=== PATIENT | female | born 1935 | race Caucasian/White ===

== ENCOUNTER 2018-04-07 15:26 | Outpatient (CLI) | payer OTHER ==
[2018-04-07 16:20] LABS: BASOPHILS % (AUTO) 0.7 %; EOSINOPHILS # (AUTO) 0.1 10^3/uL (0.0-0.7); EOSINOPHILS % (AUTO) 2.3 %; HGB - HEMOGLOBIN 12.7 g/dL (12.0-16.0); LYMPHOCYTES # (AUTO) 1.3 10^3/uL (1.5-3.5); LYMPHOCYTES % (AUTO) 24.2 %; MEAN CORPUSCULAR HEMOGLOBIN 28.7 pg (27.0-31.0); MEAN CORPUSCULAR HGB CONC 33.5 g/dL (32.0-36.0); MEAN CORPUSCULAR VOLUME 85.6 fL (81.0-99.0); MEAN PLATELET VOLUME 7.8 fL (7.9-10.8); MONOCYTES # (AUTO) 0.4 10^3/uL (0.0-1.0); NEUTROPHILS # (AUTO) 3.5 10^3/uL (1.5-6.6); NEUTROPHILS % (AUTO) 64.8 %; PLT - PLATELET COUNT 221 10^3/uL (130-450); RED BLOOD COUNT 4.41 10^6/uL (4.20-5.40); RED CELL DISTRIBUTION WIDTH 16.4 % (12.0-15.0); WHITE BLOOD COUNT 5.4 x10^3/uL (4.8-10.8)
[2018-04-07 16:32] LABS: ALBUMIN 4.2 g/dL (3.2-5.5); ALBUMIN/GLOBULIN RATIO 1.8 (1.0-2.2); BILIRUBIN,TOTAL 0.2 mg/dL (0.2-1.0); CALCIUM 9.2 mg/dL (8.5-10.3); CREATININE 0.8 mg/dL (0.4-1.0); TOTAL PROTEIN 6.6 g/dL (6.7-8.2)
== END 2018-04-07 15:27 | disposition home or self-care (01) ==
LOC: LAB 15:26
PROVIDERS: ATTEND Registered Nurse
DX: R53.83 Other fatigue (principal)
CPT/HCPCS: 36415; 80053; 84443; 85025

== ENCOUNTER 2018-04-07 15:36 | Outpatient (CLI) | payer MEDICARE ==
--- NOTE | 2018-04-08 06:23 | CT Report ---
Reason: INCREASING IMBALANCE Procedure Date: 04/07/2018 Accession Number: [id number] / [id number] Procedure: CT - Head W/O CPT Code: FULL RESULT: EXAM: CT HEAD EXAM DATE: 04/07/2018 03:44 PM. CLINICAL HISTORY: Increasing imbalance. History of subdural hematoma. COMPARISON: None. TECHNIQUE: Multiaxial CT images were obtained from the foramen magnum to the vertex. Reformats: Sagittal and coronal. IV contrast: None. In accordance with CT protocol optimization, one or more of the following dose reduction techniques were utilized for this exam: automated exposure control, adjustment of mA and/or KV based on patient size, or use of iterative reconstructive technique. FINDINGS: Parenchyma: No intraparenchymal hemorrhage. No evidence of mass, midline shift or CT findings of acute infarction. Hill-white differentiation is distinct. 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 Extraaxial Spaces: Normal for age. No subdural or epidural collections identified. Ventricles: The ventricles and cortical sulci are enlarged, consistent with age-related tissue loss. Sinuses: Imaged paranasal sinuses, orbits, and mastoids show no significant abnormality. Bones: No evidence of fracture or calvarial defect. Other: None. IMPRESSION: Mild senescent changes without evidence of acute intracranial abnormality. [facility]
== END 2018-04-07 15:37 | disposition home or self-care (01) ==
LOC: DI 15:36
PROVIDERS: ATTEND Registered Nurse
DX: R26.89 Other abnormalities of gait and mobility (principal); M79.81 Nontraumatic hematoma of soft tissue; R53.83 Other fatigue
CPT/HCPCS: 36415; 70450; 80053; 84443; 85025

== ENCOUNTER 2019-02-13 16:57 | Emergency (ER) | payer MEDICARE ==
[2019-02-13] MEDS ORDERED: TETANUS/DIPHTHERIA/PERTUSSIS 0.5 ML SYRINGE IM ONE (17:30)
[2019-02-13] MEDS ORDERED: BACITRACIN OINT TOP STA (17:31)
--- NOTE | 2019-02-13 17:34 | ED Physician Documentation ---
PD HPI LOWER EXT INJURY - Stated complaint Stated Complaint: LT LEG LAC - Chief complaint Chief Complaint: Wound - History obtained from History obtained from: Patient - History of Present Illness PD HPI LOW EXT INJURY LOCATION: Left, Lower leg Type of injury: Other (skin avulsion) Where injury occurred: [place] Timing - onset: How many hours ago (1) Timing - duration: Hours (1) Timing - details: Abrupt onset Pain level max: 4 Pain level now: 3 Improved by: Rest Worsened by: Moving, Palpating Associated symptoms: No: Weakness, Numbness, Tingling, Swelling Contributing factors: No: Anticoagulated Recently seen: Not recently seen - Additional information Additional information: Patient was playing with her dog when her dog pawed at her and avulsed skin from the left lower leg. Review of Systems Constitutional: denies: Fever Skin: denies: Rash Musculoskeletal: denies: Neck pain, Back pain Neurologic: denies: Headache PD PAST MEDICAL HISTORY - Past Medical History Past Medical History: No - Present Medications Home Medications: Ambulatory Orders Medication Instructions Recorded Confirmed Bacitracin Zinc Oint 1 applic TOP BID #1 tube 02/13/19 - Allergies Allergies/Adverse Reactions: Allergies Allergy/AdvReac Type Severity Reaction Status Date / Time blood pressure medications Allergy Unknown Uncoded 02/13/19 17:11 - Living Situation Living Arrangement: reports: At home - Social History Does the pt have substance abuse?: No - Family History Family history: reports: Non contributory - Immunizations Immunizations are current?: No Immunizations: TDAP >10years/unknown PD ED PE NORMAL - Vitals Vital signs reviewed: Yes - General General: Alert and oriented X 3, No acute distress - HEENT HEENT: Moist mucous membranes - Derm Derm: Warm and dry - Extremities Extremities: Other (L LE - There is a large wound to the lateral aspect of the lower left leg. The skin is avulsed. Approximately 2 x 15 cm. Superficial. NVI.) - Neuro Neuro: Alert and oriented X 3 - Psych Psych: Normal mood, Normal affect Results - Vitals Vitals: Vital Signs - 24 hr 02/13/19 17:08 Temperature 37.2 C Heart Rate 91 Respiratory 20 Rate Blood Pressure 200/104 H O2 Saturation 99 Oxygen O2 Source Room air PD MEDICAL DECISION MAKING - ED course Complexity details: considered differential, d/w patient ED course: 83-year-old female with a left lower extremity skin avulsion. This was cleansed. Mepitel was placed over the area. Bacitracin applied and then a loose Kerlix bandage applied. We will have her change the outer dressings twice a day. Warnings of infection and instructions on wound care given at bedside. Also counseled on how to minimize scarring. patient counseled that she may need further wound care. Patient counseled regarding signs and symptoms for which I believe and urgent re-evaluation would be necessary. Patient with good understanding of and agreement to plan and is comfortable going home at this time This document was made in part using voice recognition software. While efforts are made to proofread this document, sound alike and grammatical errors may occur. Departure - Departure Disposition: 01 Home, Self Care Clinical Impression: Skin avulsion Condition: Good Instructions: ED Avulsion Dermal Follow-Up: Julisa Keith ARNP [Primary Care Provider] - Within 1 week Prescriptions: Bacitracin Zinc Oint 1 applic TOP BID #1 tube Comments: Return if you worsen. Follow-up with your doctor for further care. Return if you notice redness, swelling or drainage from the wound. You can change the outer dressing. Leave the Mepitel in place for 10 to 14 days. You may need to follow-up with wound care as well. This will require a referral from your doctor. You were also given a tetanus shot today.
[2019-02-13] MEDS ORDERED: BACITRACIN OINT TOP ONE (17:38)
[2019-02-13 18:08] VITALS: BP 157/95
== END 2019-02-13 18:04 | disposition home or self-care (01) ==
LOC: ED 16:57
DX: S81.802A Unspecified open wound, left lower leg, initial encounter (principal); W54.8XXA Other contact with dog, initial encounter; Y93.89 Activity, other specified; Y92.830 Public park as the place of occurrence of the external cause; Z23 Encounter for immunization
CPT/HCPCS: 90471; 90715; 99283; 99284; A9270

== ENCOUNTER 2019-03-09 14:22 | Emergency (ER) | payer MEDICARE ==
[2019-03-09 14:29] VITALS: BP 167/85
[2019-03-09] MEDS ORDERED: SODIUM CHLORIDE 0.9% 1,000 ML IV ONE ×2 (14:52→15:39)
[2019-03-09] MEDS ORDERED: ONDANSETRON 4 MG/2 ML VIAL IVP STA (14:52)
--- NOTE | 2019-03-09 14:56 | ED Physician Documentation ---
History of Present Illness - Stated complaint Stated Complaint: V/DIZZY/LETHARGIC - Chief complaint Chief Complaint: Neuro - History obtained from History obtained from: Patient - History of Present Illness Timing: Today - Additonal information Additional information: 83 y/o female was well yesterday and about 2am she developed acute nausea and vomiting. This morning she is no longer vomiting but feels lightheaded dizzy and worn out. She called the nurse hotline and it recommended she come in for IV hydration. Review of Systems Constitutional: reports: Fatigue, Sweats. denies: Fever, Chills Eyes: denies: Decreased vision Ears: denies: Ear pain Nose: denies: Rhinorrhea / runny nose, Congestion Throat: denies: Sore throat Cardiac: denies: Chest pain / pressure, Palpitations Respiratory: denies: Dyspnea, Cough GI: reports: Nausea, Vomiting. denies: Abdominal Pain : denies: Dysuria, Frequency Skin: denies: Rash Musculoskeletal: denies: Neck pain, Back pain, Extremity pain Neurologic: reports: Generalized weakness. denies: Focal weakness, Numbness PD PAST MEDICAL HISTORY - Past Medical History Cardiovascular: Hypertension - Present Medications Home Medications: Ambulatory Orders Medication Instructions Recorded Confirmed Ondansetron Odt [Zofran] 4 mg TL Q6H PRN #10 tablet 03/09/19 Zolpidem [Ambien] 1 tab DAILY PRN 03/09/19 03/09/19 - Allergies Allergies/Adverse Reactions: Allergies Allergy/AdvReac Type Severity Reaction Status Date / Time blood pressure medications Allergy Unknown Uncoded 03/09/19 14:29 - Social History Does the pt smoke?: No Smoking Status: Never smoker Does the pt have substance abuse?: No - Immunizations Immunizations are current?: No Immunizations: TDAP >10years/unknown PD ED PE NORMAL - Vitals Vital signs reviewed: Yes (hypertensive ) - General General: Alert and oriented X 3, No acute distress, Well developed/nourished, Other (thin female in no distress) - HEENT HEENT: Atraumatic, PERRL, EOMI, Other (dry mucous membranes) - Neck Neck: Supple, no meningeal sign, No bony TTP - Cardiac Cardiac: No murmur, Other (tachy to 110) - Respiratory Respiratory: No respiratory distress, Clear bilaterally - Abdomen Abdomen: Soft, Non tender - Back Back: No CVA TTP, No spinal TTP - Derm Derm: Normal color, Warm and dry, No rash - Extremities Extremities: No deformity, No edema - Neuro Neuro: Alert and oriented X 3, cell liner 2-12 intact, No motor deficit, No sensory deficit, Normal speech Eye Opening: Spontaneous Motor: Obeys Commands Verbal: Oriented GCS Score: 15 - Psych Psych: Normal mood, Normal affect Results - Vitals Vitals: Vital Signs - 24 hr 03/09/19 14:25 Temperature 36.1 C L Heart Rate 90 Respiratory 16 Rate Blood Pressure 167/85 H O2 Saturation 96 Oxygen O2 Source Room air - Labs Labs: Laboratory Tests 03/09/19 03/09/19 03/09/19 15:19 15:19 15:44 WBC 6.1 RBC 3.98 L Hgb 11.2 L Hct 34.9 L MCV 87.7 MCH 28.1 MCHC 32.1 RDW 14.8 Plt Count 209 MPV 9.7 Neut # (Auto) 4.7 Lymph # (Auto) 0.8 L [place] # (Auto) 0.5 Eos # (Auto) 0.0 Baso # (Auto) 0.0 Absolute Nucleated RBC 0.00 Nucleated RBC % 0.0 Sodium 136 Potassium 3.9 Chloride 100 L Carbon Dioxide 25 Anion Gap 11.0 BUN 21 H Creatinine 0.9 Estimated GFR (MDRD) 60 L Glucose 104 H Calcium 8.6 Total Bilirubin 0.8 AST 30 ALT 15 Alkaline Phosphatase 42 Total Protein 5.8 L Albumin 3.5 Globulin 2.3 Albumin/Globulin Ratio 1.5 Lipase 19 L Urine Color LT. YELLOW Urine Clarity CLEAR Urine pH 6.0 Ur Specific [place] 1.010 Urine Protein NEGATIVE Urine Glucose (UA) NEGATIVE Urine Ketones TRACE Urine Occult Blood TRACE-LYSE Urine Nitrite NEGATIVE Urine Bilirubin NEGATIVE Urine Urobilinogen 0.2 (NORMAL) Ur Leukocyte Esterase NEGATIVE Ur Microscopic Review NOT INDICATED Urine Culture Comments NOT INDICATED Procedures - IVC sono (time) 1445 Bedside IVC sono: IVC measures (cm) (1.12), IVC collapsed c insp (cm) (complete), Dehydration (est 1-2 liter deficit) PD MEDICAL DECISION MAKING - ED course Complexity details: reviewed results, re-evaluated patient, considered differential, d/w patient ED course: 83-year-old female with acute vomiting and dehydration is hydrated with intravenous saline feels improved. Departure - Departure Disposition: 01 Home, Self Care Clinical Impression: Dehydration, Gastroenteritis Condition: Stable Instructions: ED Dehydration, ED Food Poison Or Gastroenteritis Follow-Up: Julisa Keith ARNP [Primary Care Provider] - Prescriptions: Ondansetron Odt [Zofran] 4 mg TL Q6H PRN #10 tablet PRN Reason: Nausea / Vomiting
[2019-03-09 15:29] LABS: BASOPHILS % (AUTO) 0.5 %; EOSINOPHILS % (AUTO) 0.5 %; HGB - HEMOGLOBIN 11.2 g/dL (12.0-16.0); LYMPHOCYTES # (AUTO) 0.8 10^3/uL (1.5-3.5); LYMPHOCYTES % (AUTO) 13.6 %; MEAN CORPUSCULAR HEMOGLOBIN 28.1 pg (27.0-31.0); MEAN CORPUSCULAR HGB CONC 32.1 g/dL (32.0-36.0); MEAN CORPUSCULAR VOLUME 87.7 fL (81.0-99.0); MEAN PLATELET VOLUME 9.7 fL (7.9-10.8); MONOCYTES # (AUTO) 0.5 10^3/uL (0.0-1.0); MONOCYTES % (AUTO) 8.7 %; NEUTROPHILS # (AUTO) 4.7 10^3/uL (1.5-6.6); NEUTROPHILS % (AUTO) 76.5 %; PLT - PLATELET COUNT 209 10^3/uL (130-450); RED BLOOD COUNT 3.98 10^6/uL (4.20-5.40); RED CELL DISTRIBUTION WIDTH 14.8 % (12.0-15.0); WHITE BLOOD COUNT 6.1 x10^3/uL (4.8-10.8)
[2019-03-09 15:38] LABS: ALBUMIN 3.5 g/dL (3.2-5.5); ALBUMIN/GLOBULIN RATIO 1.5 (1.0-2.2); BILIRUBIN,TOTAL 0.8 mg/dL (0.2-1.0); CALCIUM 8.6 mg/dL (8.5-10.3); CREATININE 0.9 mg/dL (0.4-1.0); TOTAL PROTEIN 5.8 g/dL (6.7-8.2)
[2019-03-09 15:58] LABS: BILIRUBIN,URINE NEGATIVE (NEGATIVE); GLUCOSE, URINE (UA) NEGATIVE (NEGATIVE); KETONES,URINE (UA) TRACE mg/dL (NEGATIVE); LEUKOCYTE ESTERASE, URINE NEGATIVE (NEGATIVE); NITRITE,URINE NEGATIVE (NEGATIVE); OCCULT BLOOD,URINE TRACE-LYSE (NEGATIVE); PROTEIN,URINE NEGATIVE (NEGATIVE); UROBILINOGEN,URINE 0.2 (NORMAL) E.U./dL (NORMAL)
[2019-03-09 16:03] LABS: CLARITY,URINE CLEAR (CLEAR)
== END 2019-03-09 16:17 | disposition home or self-care (01) ==
LOC: ED 14:22
DX: E86.0 Dehydration (principal); K52.9 Noninfective gastroenteritis and colitis, unspecified; I10 Essential (primary) hypertension
CPT/HCPCS: 36415; 80053; 81001; 81003; 83690; 85025; 87086; 96360; 99283